=== PATIENT | male | born 1965 | race Caucasian/White ===

== ENCOUNTER 2019-12-04 12:20 | Emergency (ER) | payer SELFPAY ==
[~2019-12-04] VITALS: Ht 182.9 cm; Wt 71.7 kg
--- NOTE | 2019-12-04 12:20 | NUR ---
Patient BIBA BLS, transferred to bed 5. RN evaluating patient at bedside.
[2019-12-04 12:22] VITALS: BP 118/75
--- NOTE | 2019-12-04 12:29 | NUR ---
53 y.o male, BIBA found in motel room for altered mental status. Pt would not answer questions. PMH obtained from medication bottles. PMH: HLD, Anxiety, Anemia
--- NOTE | 2019-12-04 12:38 | NUR ---
Dr. Mello is evaluating the patient at bedside.
--- NOTE | 2019-12-04 13:00 | NUR ---
Shalini mcpherson in EDM - 12/04/19 at 1314 by TARA PT FLAKO IS CHECKING PT'S MEDICATIONS TO REFILL AFTER OBTAINING PT'S PERMISSION. PT STATED DON'T TOUCH MY MEDICATIONS, AND HE BECAME VERBALLY AGGRESIVE AND COMBITIVE. SECRUITY CALLED TO BEDSIDE.
--- NOTE | 2019-12-04 13:00 | NUR ---
DR. ARRIOLA IS CHECKING PT'S MEDICATIONS TO REFILL AFTER OBTAINING PT'S PERMISSION. PT STATED DON'T TOUCH MY MEDICATIONS, AND HE BECAME VERBALLY AGGRESIVE AND COMBITIVE. SECRUITY CALLED TO BEDSIDE.
[2019-12-04 13:14] VITALS: BP 118/75
--- NOTE | 2019-12-04 13:15 | NUR ---
Patient discharged with v/s stable. Written and verbal after care instructions given and explained. Patient verbalized understanding. Ambulatory with steady gait. All questions addressed prior to discharge. Advised to follow up with PMD. Pt refuses to sign discharge paperwork
[2019-12-06] MEDS ORDERED: LISI-420 PO (10:05)
[2019-12-06] MEDS ORDERED: THIA-34 PO (10:05)
[2019-12-06] MEDS ORDERED: MULT-405 PO (10:05)
[2019-12-06] MEDS ORDERED: FOLI1TAB90 PO (10:05)
[2019-12-06] MEDS ORDERED: NAPR-54 PO (10:10)
== END 2019-12-04 13:15 | disposition home or self-care (01) ==
LOC: MED 12:20
DX: G89.29 Other chronic pain (principal); M54.9 Dorsalgia, unspecified; F41.9 Anxiety disorder, unspecified; D64.9 Anemia, unspecified; E78.00 Pure hypercholesterolemia, unspecified
CPT/HCPCS: 99283

== ENCOUNTER 2019-12-04 18:38 | Emergency (ER) | payer MEDICAID ==
[~2019-12-04] VITALS: Ht 180.3 cm; Wt 72.6 kg
[2019-12-04 18:46] VITALS: BP 123/97
--- NOTE | 2019-12-04 18:51 | NUR ---
Patient ambulated to bed 7. RN evaluating patient at bedside.
--- NOTE | 2019-12-04 18:52 | NUR ---
LUCRECIA Reyes is evaluating the patient at bedside.
--- NOTE | 2019-12-04 18:59 | NUR ---
53 y/o male c/o lower back pain x 2 days. Pt states 10/10 sharp constant pain radiating from lower back to bilateral legs. Pt states "i dont want to tell you, just fix me since youre the doctor." Pt agitated and uncooperative. Positioned for comfort. medhx: HLD, Anemia
--- NOTE | 2019-12-04 19:11 | NUR ---
Report given to YOANA Hunter. Transfer of care at this time
--- NOTE | 2019-12-04 19:11 | NUR ---
received report from brody magaña. will cont care at this time.
[2019-12-04] MEDS ORDERED: MULTIVITAMIN-12 10 ML in NACL 0.9% 1,000 ML IV ONE (19:14)
[2019-12-04] MEDS ORDERED: THIAMINE 200 MG/2 ML VIAL IM ONE (19:15)
[2019-12-04] MEDS ORDERED: MAG SULF 2000 MG/WATER PREMIX 50 ML IV ONE (19:15)
[2019-12-04] MEDS ORDERED: FOLIC ACID 5 MG/ML SYR IM ONE (19:15)
[2019-12-04] MEDS ORDERED: MULTIVITAMIN-12 10 ML VIAL IV ONE (19:33)
[2019-12-04] MEDS ORDERED: KETOROLAC 15 MG/ML VIAL IVP ONE (20:25)
--- NOTE | 2019-12-04 20:30 | NUR ---
PT REQUESTED TO HAVE VIAGRA AND LIBRIUM. SWAPNA SPOKE TO PT AND TOLD HIM NO. PT STARTED GETTING VERBALLY AGGRESSIVE TO STAFF. PT ALSO STATED, "YOU GUYS DONT KNOW HOW TO FUCKEN DO ANYTHING, WHAT THE FUCK."
--- NOTE | 2019-12-04 21:02 | NUR ---
PT VERBALLY AGGRESSIVE WITH STAFF, USING FOUL LANGUAGE. PT UP FOR DISCHARGE AND UNWILLING TO LEAVE. SECURITY CALLED TO ESCORT PT OUT OF FACILITY.
[2019-12-04 21:08] VITALS: BP 123/97
--- NOTE | 2019-12-04 21:08 | NUR ---
PT REFUSED TO SIGNED D/C PAPERWORK AND THROUGH D/C PAPERWORK AT THE NURSE. PT STARTED SHOUTING AND VERBALLY GETTING AGGRESSIVE AGAIN. SECURITY WAS CALLED TO ESCORT PT OUT.
--- NOTE | 2019-12-04 21:08 | NUR ---
PT WAS D/C BUT REFUSED TO SIGN D/C PAPERWORK. ID BAND REMOVED AT THIS TIME.
[2019-12-06] MEDS ORDERED: LISI-420 PO (10:05)
[2019-12-06] MEDS ORDERED: THIA-34 PO (10:05)
[2019-12-06] MEDS ORDERED: MULT-405 PO (10:05)
[2019-12-06] MEDS ORDERED: FOLI1TAB90 PO (10:05)
[2019-12-06] MEDS ORDERED: NAPR-54 PO (10:10)
== END 2019-12-04 21:08 | disposition home or self-care (01) ==
LOC: MED 18:38
DX: M54.9 Dorsalgia, unspecified (principal)
CPT/HCPCS: 96365; 96368; 96372; 96375; 99284; A9153; J1885; J3411; J3475; J3490; 81002